=== PATIENT | female | born 1945 | race Caucasian/White ===

== ENCOUNTER 2017-11-25 11:17 | Emergency (ER) | payer OTHER ==
[~2017-11-25] VITALS: Ht 154.9 cm; Wt 70.3 kg
[2017-11-25] MEDS ORDERED: ATORVASTATIN CA20 M1 PO (11:26)
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
[2017-11-25 13:12] LABS: ABSOLUTE BASOPHIL COUNT 0 /CUMM (0.0-0.2); ABSOLUTE EOSINOPHIL COUNT 0 /CUMM (0.0-0.7); ABSOLUTE GRANULOCYTE CT 4.5 /CUMM (1.4-6.5); ABSOLUTE LYMPH COUNT 1.4 /CUMM (1.2-3.4); ABSOLUTE MONOCYTE COUNT 0.3 /CUMM (0.10-0.60); BASOPHIL % 0.3 % (0.0-2.0); EOSINOPHIL % 0.5 % (0-5); GRANULOCYTE % 71.7 % (42.2-75.2); HEMATOCRIT 41.7 % (37-47); MEAN CORPUSCULAR HGB 28.4 PG (27.0-31.0); MEAN CORPUSCULAR HGB CONC 33.8 G/DL (33.0-37.0); MEAN CORPUSCULAR VOLUME 84.1 FL (81.0-99.0); MEAN PLATELET VOLUME 11.5 FL (7.4-10.4); PLATELET COUNT 168 /CUMM (130-400); RBC DISTRIBUTION WIDTH 13.9 % (11.5-14.5); RED BLOOD CELL CT 4.95 /CUMM (4.20-5.40); WHITE BLOOD CELL COUNT 6.3 /CUMM (4.8-10.8)
--- NOTE | 2017-11-25 14:34 | RADIOLOGY REPORT ---
EXAMINATION: XR CHEST CLINICAL INFORMATION: Confusion. Presumptive diagnosis: Infection. COMPARISON: None TECHNIQUE: PA and lateral views of the chest are obtained. FINDINGS: No significant abnormality is noted involving the heart, lungs, mediastinum, bony thorax or soft tissues. IMPRESSION: Unremarkable examination.
--- NOTE | 2017-11-25 15:01 | CT SCAN REPORT ---
EXAMINATION: CT ANGIOGRAM NECK WITH CONTRAST CT ANGIOGRAM BRAIN WITH CONTRAST CLINICAL INFORMATION: Altered mental status for 4 hours. COMPARISON: None available. TECHNIQUE: Test bolus sequences followed by intravenous administration 100 mL of Optiray 350. Helical imaging was performed in the axial plane from the thoracic inlet to the skull vertex. Delayed postcontrast imaging of the head was also performed. The data was processed at the nanotechnology engineering technologist workstation for generation of MIP sequences. Angled MIPs and volume rendered reformatted images were also generated at an offline 3D workstation. Stenoses are assessed in accordance with NASCET criteria unless otherwise indicated. FINDINGS: BRAIN: There is no intracranial hemorrhage, hydrocephalus, extra-axial surface collection, midline shift, or other herniation pattern. Combs to white matter differentiation is diffusely maintained without evidence of an evolved acute territorial infarct. The basilar cisterns are preserved. No significant soft tissue abnormality. No acute osseous abnormality. Small retention cyst within the right maxillary sinus. The remaining paranasal sinuses and the mastoid air cells are clear. CERVICAL SOFT TISSUES AND LUNG APICES: No significant soft tissue findings within the neck. The imaged upper lungs are clear. Cervical spondylosis. NECK CTA: Left vertebral artery arises from aortic arch, an anatomic variant. Proximal arch vessels are non-stenotic. The right vertebral artery is dominant. No significant ostial stenosis is visualized on either side. Both vertebral arteries are widely patent throughout their extracranial cervical course. Both common and internal carotid arteries are normal in course and caliber. Calcific atherosclerotic disease results in a less than 50% stenosis of the proximal left internal carotid artery. BRAIN CTA: There is normal opacification of major intracranial arteries. No focal flow-limiting stenosis nor discrete proximal large artery occlusion. A 2 mm infundibulum versus aneurysm projects inferiorly from the communicating segment of the left internal carotid artery on image 363 of series 3. Timing of the contrast bolus allows assessment of the major dural venous sinuses, which all opacify normally. IMPRESSION: - No acute intracranial findings. - No significant arterial stenoses and no acute arterial occlusions within the head or neck. - A 2 mm infundibulum versus aneurysm projects inferiorly from the communicating segment of the left internal carotid artery on image 363 of series 3.
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
[2017-11-25 19:48] VITALS: BP 151/88
== END 2017-11-25 19:58 ==
LOC: ERH 11:17
PROVIDERS: Physician Assistant
DX: G45.4 Transient global amnesia (principal); E78.5 Hyperlipidemia, unspecified
CPT/HCPCS: 71046; 80307; 81003; 93005; 93010; G0463; G0480